=== PATIENT | female | born 1975 | race Caucasian/White ===

== ENCOUNTER 2021-06-23 11:33 | Emergency (ER) | payer SELFPAY ==
[2021-06-23] MEDS ORDERED: Ketorolac Tromethamine 30 MG/ML VIAL ONE (12:27)
[2021-06-23] MEDS ORDERED: Ondansetron ODT 4 MG TAB ONE (12:27)
[2021-06-23] MEDS ORDERED: Morphine 4 MG/ML VIAL ONE (13:06)
== END 2021-06-23 15:15 | disposition home or self-care (01) ==
LOC: CSHERS 11:33
DX: M54.10 Radiculopathy, site unspecified (principal); M25.511 Pain in right shoulder; F17.200 Nicotine dependence, unspecified, uncomplicated; E78.5 Hyperlipidemia, unspecified
CPT/HCPCS: 96372; 99283; J1885; J2270; Q0162

== ENCOUNTER 2021-12-06 18:09 | Emergency (ER) | payer SELFPAY ==
[~2021-12-06 18:09] MED LIST: Iopamidol 300 61% 100 ML VIAL FS ONE
[2021-12-06 19:24] LABS: Bilirubin Neg (Negative); Blood, Urine Negative (Negative); Clarity Clear (Clear); Glucose, Urine (Dipstick) Normal (Negative); Ketone, Urine Negative (Negative); Leukocyte Negative (Negative); Nitrite Negative (Negative); Protein, Urine (Dipstick) Negative (Neg-Trace); Specific Gravity, Urine 1.005 (1.002-1.036); Urobilinogen Normal mg/dL (Less than 2)
[2021-12-06] MEDS ORDERED: Ondansetron PF 4 MG/2 ML Vial ONE (19:34)
[2021-12-06 19:36] LABS: Hemoglobin 11.3 g/dL (12.0-15.5); Mean Corpuscular HGB CONC 33.3 g/dL (32.0-36.0); Mean Corpuscular Hemoglobin 31.6 pg (27.0-33.0); Mean Corpuscular Volume 94.7 fl (81.6-98.3); Mean Platelet Volume 9.6 fl (7.4-10.4); Platelet Count 299 10x3/uL (150-450); RBC Distribution Width 13.8 % (11.5-14.5); Red Blood Cell (RBC) Count 3.58 10x6/uL (3.90-5.03); White Blood Cell (WBC) Count 7.7 10x3/uL (3.5-10.5)
[2021-12-06 19:54] LABS: ALT (SGPT) 115 U/L (8-55); AST (SGOT) 68 U/L (5-34); Albumin 3.9 g/dL (3.5-5.0); Alkaline Phosphatase 62 U/L (40-110); Anion Gap 15 mmol/L (10-20); BUN (Urea Nitrogen) 8 mg/dL (7.0-18.7); Bilirubin, Total 0.1 mg/dL (0.2-1.2); Calc. Creatinine Clearance 0 mL/min (70-130); Calcium 9.3 mg/dL (7.8-10.44); Carbon Dioxide 25 mmol/L (22-29); Chloride 104 mmol/L (98-107); Estimated GFR 83; Globulin 2.3 g/dL (2.4-3.5); Glucose 107 mg/dL (70-105); Lipase 23 U/L (8-78); Potassium 4.1 mmol/L (3.5-5.1); Protein, Total 6.2 g/dL (6.0-8.3); Sodium 140 mmol/L (136-145)
[2021-12-06 20:30] LABS: MDiff Complete? YES; Platelet Morphology Comment Appears Adequate
[2021-12-06 20:34] LABS: Band 7 % (5-11); Eosinophils 1 % (0-10); Lymphocytes 38 % (21-51); Monocytes 5 % (0-10); Neutrophil 49 % (42-75)
[2021-12-06 22:33] LABS: Lactic Acid 1.6 mmol/L (0.5-2.2)
== END 2021-12-06 22:09 | disposition home or self-care (01) ==
LOC: CSHERS 18:09
DX: R06.00 Dyspnea, unspecified (principal); R42 Dizziness and giddiness; R51.9 Headache, unspecified; R07.9 Chest pain, unspecified; R06.02 Shortness of breath; R11.10 Vomiting, unspecified; E78.5 Hyperlipidemia, unspecified; F17.200 Nicotine dependence, unspecified, uncomplicated
CPT/HCPCS: 36415; 71045; 74177; 80053; 81003; 83605; 83690; 83880; 84484; 85025; 93005; 96361; 96374; J2405; Q9967

== ENCOUNTER 2022-02-25 19:03 | Emergency (ER) | payer SELFPAY ==
[~2022-02-25 19:03] MED LIST changes: -Iopamidol 300 61% 100 ML VIAL FS ONE; +Iopamidol 370 76% 100 ML VIAL ONE
[2022-02-25 20:09] LABS: #Basophils 0.1 10x3/uL (0.0-0.2); #Eosinphils 0.3 10x3/uL (0.0-0.5); #Monocytes 0.6 10x3/uL (0.0-1.1); #Neutrophils 3.5 10x3/uL (1.5-8.4); %Basophils 0.6 % (0.0-2.0); %Lymphocytes 48.6 % (18.0-47.0); %Monocytes 7.2 % (0.0-10.0); %Neutrophils 40.5 % (40.0-75.0); Hemoglobin 13.2 g/dL (12.0-15.5); Mean Corpuscular HGB CONC 33.9 g/dL (32.0-36.0); Mean Corpuscular Hemoglobin 32.2 pg (27.0-33.0); Mean Corpuscular Volume 94.9 fl (81.6-98.3); Mean Platelet Volume 10.1 fl (7.4-10.4); Platelet Count 390 10x3/uL (150-450); RBC Distribution Width 13.5 % (11.5-14.5); White Blood Cell (WBC) Count 8.7 10x3/uL (3.5-10.5)
[2022-02-25 20:19] LABS: ALT (SGPT) 15 U/L (8-55); AST (SGOT) 15 U/L (5-34); Albumin 4.4 g/dL (3.5-5.0); Alkaline Phosphatase 61 U/L (40-110); Anion Gap 15 mmol/L (10-20); BUN (Urea Nitrogen) 13 mg/dL (7.0-18.7); Bilirubin, Total 0.2 mg/dL (0.2-1.2); CK (CPK) 105 U/L (29-168); Calc. Creatinine Clearance 0 mL/min (70-130); Calcium 9.7 mg/dL (7.8-10.44); Carbon Dioxide 25 mmol/L (22-29); Chloride 105 mmol/L (98-107); Estimated GFR 67; Globulin 2.5 g/dL (2.4-3.5); Glucose 122 mg/dL (70-105); Lipase 29 U/L (8-78); Potassium 4.2 mmol/L (3.5-5.1); Protein, Total 6.9 g/dL (6.0-8.3); Sodium 141 mmol/L (136-145)
[2022-02-25] MEDS ORDERED: Aspirin Chewable 81 MG TAB ONE (20:22)
[2022-02-25] MEDS ORDERED: Prochlorperazine 10 MG/2 ML VIAL ONE (20:23)
[2022-02-25] MEDS ORDERED: Ketorolac Tromethamine 30 MG/ML VIAL ONE (21:56)
== END 2022-02-25 19:12 | disposition home or self-care (01) ==
LOC: CSHERS 19:03
DX: R07.89 Other chest pain (principal); R51.9 Headache, unspecified; E78.5 Hyperlipidemia, unspecified; F17.210 Nicotine dependence, cigarettes, uncomplicated
CPT/HCPCS: 71275; 74174; 80053; 82550; 83690; 83880; 84484; 85025; 93005; 96374; 96375; J0780; J1885; Q9967

== ENCOUNTER 2025-01-01 12:50 | Observation (INO) | payer SELFPAY ==
[2025-01-01] MEDS ORDERED: Nitroglycerin 2% Ointment 1 INCH/1 GM Packet ONE (13:25)
[2025-01-01] MEDS ORDERED: Aspirin Chewable 81 MG TAB ONE (13:26)
[2025-01-01 13:46] LABS: #Basophils 0.03 10x3/uL (0.0-0.2); #Eosinophils 0.41 10x3/uL (0.0-0.5); #Monocytes 0.49 10x3/uL (0.0-1.1); #Neutrophils 4.68 10x3/uL (1.5-8.4); %Basophils 0.4 % (0.0-2.0); %Eosinophils 5.0 % (0.0-6.0); %Lymphocytes 31.0 % (18.0-47.0); %Monocytes 6.0 % (0.0-10.0); %Neutrophils 57.4 % (40.0-75.0); Hematocrit 46.8 % (34.9-44.5); Hemoglobin 15.2 g/dL (12.0-15.5); Mean Corpuscular Hemoglobin 29.3 pg (27.0-33.0); Mean Corpuscular Volume 90.3 fL (81.6-98.3); Platelet Count 394 10x3/uL (150-450); Red Blood Cell (RBC) Count 5.18 10x6/uL (3.90-5.03); White Blood Cell (WBC) Count 8.16 10x3/uL (3.5-10.5)
[2025-01-01 13:59] LABS: BHCG - Serum Negative (NEGATIVE); Pregs Control Background? CLEAR/WHITE (CLR/WHITE); Pregs Control Bar Appear? YES (CONTROL BAR)
[2025-01-01 14:07] LABS: ALT (SGPT) 33 U/L (Less than 34); AST (SGOT) 21 U/L (11-34); Albumin 4.4 g/dL (3.1-4.5); Alkaline Phosphatase 100 U/L (40-110); Anion Gap 16 mmol/L (10-20); BUN (Urea Nitrogen) 7 mg/dL (7.0-18.7); Bilirubin, Total 0.2 mg/dL (0.3-1.2); Calc. Creatinine Clearance 0 mL/min (70-130); Calcium 10.0 mg/dL (7.8-10.44); Carbon Dioxide 21 mmol/L (22-29); Chloride 107 mmol/L (98-107); Globulin 3.3 g/dL (2.4-3.5); Glucose 120 mg/dL (70-105); Potassium 4.8 mmol/L (3.5-5.1); Sodium 139 mmol/L (136-145)
[2025-01-01 14:08] LABS: Acetaminophen Less than 10 mcg/mL (Less than 10); Salicylate Less than 8.0 mg/dL (Less than 8.0)
[2025-01-01 14:11] LABS: Troponin I Less than 0.010 ng/mL (< 0.028)
[2025-01-01] MEDS ORDERED: Senokot S 8.6-50 MG TAB PO PRN (16:33)
[2025-01-01] MEDS ORDERED: Nitroglycerin 0.4 MG TAB (25 Tab Bottle) SL PRN (16:33)
[2025-01-01 17:11] VITALS: BMI 43.0
[2025-01-01 18:54] LABS: Troponin I Less than 0.010 ng/mL (< 0.028)
[2025-01-01 20:02] LABS: Cardiac Risk 6.9 (Less than 4.5); Cholesterol 289.0 mg/dl (< 200 Desired); HDL Cholesterol 42.0 mg/dL (>60 Neg Risk); LDL Cholesterol, Calculated 201.0 mg/dL; Triglycerides 231.0 mg/dL (Less than 150)
[2025-01-01 20:55] LABS: Troponin I Less than 0.010 ng/mL (< 0.028)
[2025-01-01] MEDS: Famotidine 20 MG TAB PO SCH (21:03)
[2025-01-01] MEDS: Acetaminophen 325 MG TAB PO PRN (21:10)
[2025-01-02 06:31] LABS: Anion Gap 15 mmol/L (10-20); BUN (Urea Nitrogen) 9 mg/dL (7.0-18.7); Calc. Creatinine Clearance 101 mL/min (70-130); Calcium 9.4 mg/dL (7.8-10.44); Carbon Dioxide 21 mmol/L (22-29); Chloride 108 mmol/L (98-107); Glucose 108 mg/dL (70-105); Potassium 4.2 mmol/L (3.5-5.1); Sodium 140 mmol/L (136-145)
[2025-01-02] MEDS: Aspirin Chewable 81 MG TAB PO SCH (10:05)
[2025-01-02 12:34] VITALS: BP 124/78; TEMP 98.2
[2025-01-02] MEDS ORDERED: Enoxaparin 40 MG (0.4 mL) SYRINGE SC SCH (21:00)
== END 2025-01-02 13:51 | disposition home or self-care (01) ==
LOC: CSHERS 12:50 → CSHTELE 16:27
PROVIDERS: ADMIT Internal Medicine; ATTEND Internal Medicine
PROC: B24BZZZ Ultrasonography of Heart with Aorta (ICD-10-PCS; principal; 2025-01-02)
DX: R07.2 Precordial pain (principal); R00.0 Tachycardia, unspecified; R25.1 Tremor, unspecified; I10 Essential (primary) hypertension; I25.10 Atherosclerotic heart disease of native coronary artery without angina pectoris; E78.5 Hyperlipidemia, unspecified; F31.9 Bipolar disorder, unspecified; F17.200 Nicotine dependence, unspecified, uncomplicated; Z90.49 Acquired absence of other specified parts of digestive tract; Z88.5 Allergy status to narcotic agent; Z79.899 Other long term (current) drug therapy
CPT/HCPCS: 36415; 71045; 80048; 80053; 80061; 80307; 83880; 84443; 84484; 84703; 85025; 85379; 93005; 93010; 93306; G0378